=== PATIENT | male | born 1985 | race Hispanic/Latino ===

== ENCOUNTER 2017-01-20 15:57 | Emergency (ER) | payer BC ==
[2017-01-20 16:07] VITALS: BP 137/93; PULSE 98; RESP 20; TEMP 98.5; O2SAT 98
[2017-01-20] MEDS ORDERED: Sodium Chloride 0.9% 1,000 ML IV STA (16:43)
[2017-01-20 17:30] LABS: BASO % 0.6 % (0.0-2.0); EOS % 0.3 % (0.0-4.0); HEMATOCRIT 48.6 % (35.0-51.0); LYMPH % 24.8 % (20.0-40.0); MEAN CORPUSCULAR HGB CONC 33.4 g/dL (33.0-37.0); MEAN PLATELET VOLUME 8.2 fl (7.2-11.7); MONO # 0.5 K/uL (0.0-0.8); MONO % 6.8 % (0.0-10.0); NEUT # 5.4 K/uL (1.8-7.0); NEUT % 67.5 % (50.0-75.0); RED CELL DISTRIBUTION WIDTH 12.9 % (11.5-14.5)
--- NOTE | 2017-01-20 17:31 | ED PDOC ---
HPI: Abdomen Time Seen by Provider: 01/20/17 16:05 Chief Complaint (Nursing): Abdominal Pain Chief Complaint (Provider): Vomiting History Per: Patient History/Exam Limitations: no limitations Onset/Duration Of Symptoms: Days (6 days) Outside of [place] travel?: No Current Symptoms Are (Timing): Intermittent Episodes Associated Symptoms: denies: Fever, Chills, Diarrhea, Loss Of Appetite Additional Complaint(s): Marvin Wiggins, a 31 year old male, presents to the ED complaing of 6 days of intermittent emesis(non blood and non bilious). The patient admits that his symptoms started after heavy drinking and he has been vomiting 1-2 times per day. He states that since his symptoms have started he has tried to stick to a bland diet. The patient reports that he is tolerable of some PO foods and fluids , but at times he feels light headed and dizzy. The patient states that on Sunday he spoke to a nurse practitioner over the phone who recommended meclizine which offered him no relief. He reports mild abdominal discomfort but no pain. Denies diarrhea, loss of appetite, fevers, chills, black or bloody stools. Patient reports that when he vomits he feels better. Past Medical History Reviewed: Historical Data, Nursing Documentation, Vital Signs Vital Signs: Last Vital Signs Temp 98.5 F 01/20/17 16:04 Pulse 98 H 01/20/17 16:04 Resp 20 01/20/17 16:04 BP 137/93 H 01/20/17 16:04 Pulse Ox 98 01/20/17 17:53 - Medical History PMH: No Chronic Diseases - Family History Family History: States: No Known Family Hx - Social History Alcohol: Occasional - Allergies Allergies/Adverse Reactions: Allergies Allergy/AdvReac Type Severity Reaction Status Date / Time No Known Allergies Allergy Verified 01/20/17 16:04 Review of Systems ROS Statement: Except As Marked, All Systems Reviewed And Found Negative Constitutional: Negative for: Fever, Chills Gastrointestinal: Positive for: Vomiting (Non bloody and non bilious.), Other ( Denies loss of appetite;Does have mild abdominal discomfort;Denies black or bloody stools.). Negative for: Abdominal Pain (Mild abdominal discomfort.), Diarrhea Neurological: Positive for: Dizziness, Other (Lightheaded.) Physical Exam - Reviewed Nursing Documentation Reviewed: Yes Vital Signs Reviewed: Yes - Physical Exam Appears: Positive for: Non-toxic, In Acute Distress (Mild gastrointestinal distress) Head Exam: Positive for: ATRAUMATIC, NORMOCEPHALIC Skin: Positive for: Normal Color, Warm, Dry. Negative for: Pallor Eye Exam: Positive for: Normal appearance, EOMI, PERRL. Negative for: Scleral icterus ENT: Positive for: Pharynx Is (Pharynx is clear.), Other (Mucous membranes dry.) Neck: Positive for: Normal, Painless ROM, Supple Cardiovascular/Chest: Positive for: Regular Rate, Rhythm, Chest Non Tender. Negative for: Tachycardia Respiratory: Positive for: Normal Breath Sounds, Accessory Muscle Use, Other ( Clear to auscultation bilaterally.). Negative for: Wheezing, Respiratory Distress Gastrointestinal/Abdominal: Positive for: Normal Exam, Bowel Sounds, Soft. Negative for: Tenderness, Mass, Distended, Guarding, Rebound Back: Positive for: Normal Inspection Extremity: Positive for: Normal ROM. Negative for: Tenderness, Deformity, Swelling Neurologic/Psych: Positive for: Alert, Oriented, Gait. Negative for: Motor/ Sensory Deficits - Laboratory Results Result Diagrams: 01/20/17 16:35 01/20/17 16:35 - ECG O2 Sat by Pulse Oximetry: 98 (RA) Pulse Ox Interpretation: Normal Medical Decision Making Medical Decision Makin:05 Initial Impression: 31 year old male presenting with vomiting. Differentials: Gastritis, Dehydration, Reflux Hepatitis, Electrolyte Abnormality Initial Plan: * Alcohol serum * CMP * Creatinine phosphokinase * Drug screen * Lipase * Magnesium * Phosphorous * Udip * CBC * Partial Prothrombin * NS 1000ml IV 1000mls/hr Scribe Attestation Documented by Chelly Chavez acting as a scribe for Norma Mclaughlin MD. Scribjorge Attestation All medical record entries made by the Scribe were at my direction and personally dictated by me. I have reviewed the chart and agree that the record accurately reflects my personal performance of the history, physical exam, medical decision making, and the department course for this patient. I have also personally directed, reviewed, and agree with the discharge instructions and disposition.
[2017-01-20 17:40] LABS: ALB/GLOB RATIO 1.6 (1.0-2.1); ALCOHOL SERUM < 10 mg/dl (0-10); ALKALINE PHOSPHATASE 72 U/L (38-126); ALT/SGPT 48 U/L (21-72); AST/SGOT 54 U/L (17-59); BILIRUBIN,TOTAL 0.8 mg/dl (0.2-1.3); BLOOD UREA NITROGEN 14 mg/dl (9-20); CALCIUM 10.1 mg/dL (8.4-10.2); CARBON DIOXIDE 30 mmol/L (22-30); CHLORIDE 99 mmol/L (98-107); GFR AFRICAN-AMERICAN > 60; GLUCOSE,RANDOM 90 mg/dL (75-110); LIPASE 77 U/L (23-300); MAGNESIUM 2.7 MG/DL (1.6-2.3); PHOSPHOROUS 3.4 mg/dl (2.5-4.5); POTASSIUM 4.4 MMOL/L (3.6-5.0); SODIUM 143 mmol/l (132-148)
[2017-01-20 17:58] LABS: PARTIAL THROMBOPLASTIN TIME 31.5 Seconds (25.6-37.1)
--- NOTE | 2017-01-20 18:45 | ED PDOC ---
HPI: Abdomen Time Seen by Provider: 01/20/17 16:05 Chief Complaint (Nursing): Abdominal Pain Chief Complaint (Provider): Vomiting History Per: Patient History/Exam Limitations: no limitations Onset/Duration Of Symptoms: Days (6 days) Outside of [place] travel?: No Current Symptoms Are (Timing): Still Present Associated Symptoms: Vomiting. denies: Fever, Chills, Loss Of Appetite Alleviating Factors: Other (Vomiting) Additional Complaint(s): Marvin Wiggins, a 31 year old male, presents to the ED complaing of 6 days of intermittent emesis(non blood and non bilious). The patient admits that his symptoms started after heavy drinking and he has been vomiting 1-2 times per day. He states that since his symptoms have started he has tried to stick to a bland diet. The patient reports that he is tolerable of some PO foods and fluids , but times he feels light headed and dizzy. The patient states that on Sunday he spoke to a nurse practiioner over the phone who recommended meclizine which offered him no relief. He reports mild abdominal discomfort but no pain. Denies diarrhea, loss of appetite, fevers, chills, black or bloody stools. Patient that when he vomits he feels better. Past Medical History Reviewed: Historical Data, Nursing Documentation, Vital Signs Vital Signs: Last Vital Signs Temp 98.5 F 01/20/17 16:04 Pulse 98 H 01/20/17 16:04 Resp 20 01/20/17 16:04 BP 137/93 H 01/20/17 16:04 Pulse Ox 98 01/20/17 20:05 - Medical History PMH: No Chronic Diseases - Family History Family History: States: No Known Family Hx - Social History Alcohol: Occasional - Home Medications Home Medications: Ambulatory Orders Medication Instructions Recorded Esomeprazole Magnesium [Nexium] 40 mg PO DAILY #30 capsule. 01/20/17 Ondansetron ODT [Zofran ODT] 1 odt PO Q6 PRN #20 odt 01/20/17 - Allergies Allergies/Adverse Reactions: Allergies Allergy/AdvReac Type Severity Reaction Status Date / Time No Known Allergies Allergy Verified 01/20/17 16:04 Review of Systems ROS Statement: Except As Marked, All Systems Reviewed And Found Negative Constitutional: Negative for: Fever, Chills Gastrointestinal: Positive for: Vomiting. Negative for: Other (Loss of apetite. ) Neurological: Positive for: Dizziness, Other (Lightheaded) Physical Exam - Reviewed Nursing Documentation Reviewed: Yes Vital Signs Reviewed: Yes - Physical Exam Appears: Positive for: In Acute Distress (Mild gastrointestinal distress.) Head Exam: Positive for: ATRAUMATIC, NORMOCEPHALIC Skin: Positive for: Normal Color, Warm, Dry. Negative for: Pallor Eye Exam: Positive for: Normal appearance, EOMI, PERRL. Negative for: Scleral icterus ENT: Positive for: Normal ENT Inspection, Pharynx Is (Pharynx is clear.), Other (Mucous membranes dry.) Neck: Positive for: Normal, Painless ROM, Supple Cardiovascular/Chest: Positive for: Regular Rate, Rhythm, Chest Non Tender Respiratory: Positive for: Normal Breath Sounds. Negative for: Wheezing, Respiratory Distress Gastrointestinal/Abdominal: Positive for: Normal Exam, Bowel Sounds, Soft. Negative for: Tenderness, Mass, Distended, Guarding, Rebound Back: Positive for: Normal Inspection. Negative for: Vertebral Tenderness Extremity: Positive for: Normal ROM. Negative for: Tenderness, Deformity, Swelling Lymphatic: Negative for: Adenopathy Neurologic/Psych: Positive for: Alert, Oriented. Negative for: Motor/Sensory Deficits - Laboratory Results Result Diagrams: 01/20/17 16:35 01/20/17 16:35 - ECG O2 Sat by Pulse Oximetry: 98 (RA) Pulse Ox Interpretation: Normal Medical Decision Making Medical Decision Makin:05 Initial Impression: 31 year old male presenting with vomiting. Differentials: * Gastritis, * Dehydration, * Reflux hepatitis * Electrolyte abnormality Initial Plan: * Alcohol serum * CMP * Creatinine phosphokinase * Drug screen * Lipase * Magnesium * Phosphorous * Udip * CBC * Partial Prothrombin * NS 1000ml IV 1000mls/hr 1900 Elevated CPK otherwise labs unremakrable. DW pt findings and plan of care. Mandatory GI follow up and will start meds for gastritis. Scribe Attestation Documented by Chelly Chavez acting as a scribe for Aby Mclaughlin MD. Scribe Attestation All medical record entries made by the Scribe were at my direction and personally dictated by me. I have reviewed the chart and agree that the record accurately reflects my personal performance of the history, physical exam, medical decision making, and the department course for this patient. I have also personally directed, reviewed, and agree with the discharge instructions and disposition. Disposition - Clinical Impression Clinical Impression: Vomiting, Dehydration Counseled Patient/Family Regarding: Studies Performed, Diagnosis, Need For Followup, Rx Given - Disposition Referrals: Marvin Khan MD, PhD [Staff Provider] - 01/22/17 [facility] [Outside] Disposition: Routine/Home Disposition Time: 19:00 Condition: IMPROVED Additional Instructions: BLAND DIET WITH PLENTY OF HYDRATING FLUID FOLLOW UP WITH GASTROENTEROLOGY THIS WEEK. PLEASE CALL [facility] FOR ASSISTANCE WITH MAKING APPOINTMENT. Prescriptions: Esomeprazole Magnesium [Nexium] 40 mg PO DAILY #30 capsule. Ondansetron ODT [Zofran ODT] 1 odt PO Q6 PRN #20 odt PRN Reason: Nausea/Vomiting Instructions: Gastritis (ED), Diet for Ulcers and Gastritis (ED), Acute Nausea and Vomiting (ED) Forms: [facility] ED School/Work Excuse
== END 2017-01-20 20:10 | disposition home or self-care (01) ==
LOC: H.ER 15:57
DX: R11.2 Nausea with vomiting, unspecified (principal); E86.0 Dehydration; R10.9 Unspecified abdominal pain; R42 Dizziness and giddiness
CPT/HCPCS: 80053; 82550; 83690; 83735; 84100; 85025; 85610; 85730; 96361; 96374; 96375; 99282; G0480; J2405; J7040; J7042